=== PATIENT | female | born 1990 | race Two or more races ===

== ENCOUNTER 2019-01-11 10:43 | Emergency (ER) | payer MEDICAID ==
[~2019-01-11] VITALS: Ht 167.6 cm; Wt 97.6 kg
[2019-01-11 10:44] VITALS: BP 124/78
[2019-01-11] MEDS ORDERED: DEXAMETHASONE 4 MG/ML, 1ML PO ONE (11:00)
[2019-01-11] MEDS ORDERED: DEXAMETHASONE 4 MG/ML, 5ML ONE (11:08)
[2019-01-11] MEDS ORDERED: ACETAMINOPHEN 500 MG TABLET ONE (11:21)
[2019-01-11] MEDS ORDERED: ACETAMINOPHEN 500 MG TABLET PO ONE (11:30)
[2019-01-11 11:47] LABS: RAPID INFLUENZA A Negative (Negative); RAPID INFLUENZA B Negative (Negative)
--- NOTE | 2019-01-11 12:02 | NUR ---
Patient/Caregiver given discharge instructions and they have confirmed that they understand the instructions. Patient ambulatory with steady gait. PT LEFT WITH ALL PERSONAL BELONGINGS.
== END 2019-01-11 12:49 | disposition home or self-care (01) ==
LOC: ED 12:20
DX: J02.9 Acute pharyngitis, unspecified (principal); R50.9 Fever, unspecified
CPT/HCPCS: 87081; 87400; 87880; 99283; J1100

== ENCOUNTER 2019-03-11 10:40 | Emergency (ER) | payer SELFPAY ==
[~2019-03-11] VITALS: Ht 167.6 cm; Wt 99.6 kg
[2019-03-11 10:42] VITALS: BP 116/85
== END 2019-03-11 11:42 | disposition home or self-care (01) ==
LOC: ED 11:35
DX: O99.511 Diseases of the respiratory system complicating pregnancy, first trimester (principal); J02.9 Acute pharyngitis, unspecified; M79.10 Myalgia, unspecified site; E07.9 Disorder of thyroid, unspecified; Z3A.09 9 weeks gestation of pregnancy; Z85.43 Personal history of malignant neoplasm of ovary
CPT/HCPCS: 87081; 87880; 99283

== ENCOUNTER 2020-11-16 20:37 | Observation (INO) | payer MEDICAID ==
[~2020-11-16] VITALS: Ht 167.6 cm; Wt 94.0 kg
[2020-11-17 10:24] VITALS: BP 100/58
== END 2020-11-17 14:39 | disposition home or self-care (01) ==
LOC: ED 20:45 → EDIP 22:00 → UNDOADMOB 22:34 → INTOOBSV 22:34 → EDIP 22:34 → 4NE 11-17 02:56 → EDIP 11-17 02:56 → 4NE 11-17 02:56 → UNDODISOB 11-17 14:39
PROVIDERS: ADMIT Internal Medicine; ATTEND Internal Medicine
DX: O03.4 Incomplete spontaneous abortion without complication (principal); Z20.822 Contact with and (suspected) exposure to COVID-19; E03.9 Hypothyroidism, unspecified; Z3A.17 17 weeks gestation of pregnancy